=== PATIENT | male | born 1990 | race Hispanic/Latino ===

== ENCOUNTER 2018-10-08 02:58 | Emergency (ER) | payer BC, SELFPAY ==
[2018-10-08] MEDS ORDERED: Acetaminophen 500 MG TAB ONE (03:09)
[2018-10-08 03:57] LABS: Bilirubin Negative (Negative); Blood, Urine Negative (Negative); Clarity Clear (Clear); Glucose, Urine (Dipstick) Negative (Negative); Leukocyte Negative (Negative); Nitrite Negative (Negative); Protein, Urine (Dipstick) Negative (Neg-Trace); Specific Gravity, Urine 1.015 (1.005-1.030); Urobilinogen 0.2 mg/dL (0.2-1.0); pH, Urine 5.5 (5.0-9.0)
== END 2018-10-08 04:12 | disposition home or self-care (01) ==
LOC: NAV ERS 02:58 → EDBD 02:58 → NAV ERS 04:12
DX: B34.9 Viral infection, unspecified (principal); F17.220 Nicotine dependence, chewing tobacco, uncomplicated
CPT/HCPCS: 81003; 87081; 87430; 87804; 99283